=== PATIENT | female | born 1995 | race Two or more races ===

== ENCOUNTER 2024-06-09 10:08 | Emergency (ER) | payer MEDICAID, OTHER ==
[~2024-06-09] VITALS: Ht 167.6 cm; Wt 120.0 kg
[2024-06-09 11:03] LABS: Urine Bacteria FEW /hpf (None Seen); Urine Blood Negative /uL (Negative); Urine Clarity Turbid (Clear); Urine Color Yellow (Yellow); Urine Protein, UAD TRACE (Negative); Urine Specific Gravity 1.027 (1.001-1.035); Urine Squamous Epithelial Cell MOD /hpf (<5); Urine Urobilinogen Normal (Negative); Urine WBC 5 /HPF (0-5); Urine pH 7.5 (5.0-9.0)
[2024-06-09] MEDS: SODIUM CHLORIDE 0.9% 1,000 ML IV ONE (11:04)
--- NOTE | 2024-06-09 11:18 | ED.PDOC ---
GI ASSESSMENT HPI Comments 28 year old female presents to the ED with chief complaint of N/V. Patient reports that she has been experiencing multiple episodes of nausea and vomiting with associated weakness since yesterday. Patient relays that she is diabetic and takes insulin daily. Patient denies any diarrhea, abdominal pain, fever, chills, dizziness, headache, or dysuria. 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 Family History Family History: Reviewed,noncontributory to illness Social History Smoker: Non-Smoker Alcohol: Denies ETOH Use Drugs: Denies Drug Use Lives In: Home Constitutional: reports: weakness; denies: chills, diaphoresis, fatigue, fever, malaise, sweats, others EENTM: denies: blurred vision, double vision, ear bleeding, ear discharge, ear drainage, ear pain, ear ringing, eye pain, eye redness, hearing loss, mouth pain, mouth swelling, nasal discharge, nose bleeding, nose congestion, nose pain, photophobia, tearing, throat pain, throat swelling, voice changes, others Respiratory: denies: cough, hemoptysis, orthopnea, SOB at rest, shortness of breath, SOB with excertion, stridor, wheezing, others Cardiovascular: denies: chest pain, dizzy spells, diaphoresis, Dyspnea on exertion, edema, irregular heart beat, left arm pain, lightheadedness, palpitations, PND, syncope, others Gastrointestinal: reports: nausea, vomiting; denies: abdomen distended, abdominal pain, blood streaked bowels, constipated, diarrhea, dysphagia, difficulty swallowing, hematemesis, melena, poor appetite, poor fluid intake, rectal bleeding, rectal pain, others Genitourinary: denies: abnormal vagina bleeding, burning, dyspareunia, dysuria, flank pain, frequency, hematuria, incontinence, pain, , vagina discharge, urgency, others Neurological: denies: dizziness, fainting, headache, left sided numbness, left sided weakness, numbness, paresthesia, pre-existing deficit, right sided numbness, right sided weakness, seizure, speech problems, tingling, tremors, weakness, others Musculoskeletal: denies: back pain, gout, joint pain, joint swelling, muscle pain, muscle stiffness, neck pain, others Integumetry: denies: bruises, change in color, change in hair/nails, dryness, laceration, lesions, lumps, rash, wounds, others Allergic/Immunocompromised: denies: Difficulty Healing, Frequent Infections, Hives, Itching, others Hematologic/Lymphatic: denies: anemia, blood clots, easy bleeding, easy bruising, swollen glands, others Endocrine: denies: excessive hunger, excessive sweating, excessive thirst, excessive urination, flushing, intolerance to cold, intolerance to heat, unexplained weight gain, unexplained weight loss, others Psychiatric: denies: anxiety, bipolar disorder, depression, hopeless, panic disorder, schizophrenia, sleepless, suicidal, others All Other Systems: Reviewed and Negative Physical Exam General Appearance: Moderate Distress, Normal HEENT: Normal ENT Inspection, PERRL/EOMI Neck: Full Range of Motion, Non-Tender, Normal, Normal Inspection Respiratory: Chest Non-Tender, Lungs Clear, No Accessory Muscle Use, No Respiratory Distress, Normal Breath Sounds Cardiovascular: No Edema, No JVD, No Murmur, No Gallop, Normal Peripheral Pulses, Tachycardia Breast Exam: Deferred Gastrointestinal: No Organomegaly, Non Tender, No Pulsatile Mass, Normal Bowel Sounds, Soft Genitalia: Deferred Pelvic: Deferred Rectal: Deferred Extremities: No calf tenderness, Normal capillary refill, Normal inspection, Normal range of motion, Non-tender, No pedal edema Musculoskeletal : Apperance: Normal Neurologic: Alert, associate editor II-XII nml as Tested, No Motor Deficits, Normal Affect, Normal Mood, No Sensory Deficits Cerebellar Function: Normal Reflexes: Normal Skin: Dry, Normal Color, Warm Peripheral Pulses: 3+ Radial (R), 3+ Radial (L) Lymphatic: No Adenopathy Was a procedure done? Was a procedure done?: No GI differential Dx Differential Diagnosis: Constipation, Diverticular disease, Esophagitis, Gastritis/PUD, Gastroenteritis X-Ray, Labs, Meds, VS Vital Signs Date Time Temp Pulse Resp B/P (MAP) Pulse Ox O2 Delivery O2 Flow Rate FiO2 06/09/24 11:15 Room Air* 0 21 06/09/24 11:06 102 20 97 Room Air 06/09/24 11:06 97.8 102 20 132/83 (99) 97 97.8 06/09/24 10:26 28 99 Room Air* 0 21 06/09/24 10:21 97.9 102 28 152/82 (105) 99 Lab Test 06/09/24 11:03 06/09/24 10:16 06/09/24 10:14 Range/Units White Blood Count 8.8 4.4-10.8 10^3/uL Red Blood Count 5.35 H 4.0-5.20 10^6/uL Hemoglobin 15.6 12.2-16.2 g/dL Hematocrit 45.9 36.0-46.0 % Mean Corpuscular Volume 85.9 80.0-100.0 fL Mean Corpuscular Hemoglobin 29.2 28.0-32.0 pg Mean Corpuscular Hemoglobin Concent 34.0 32.0-36.0 g/dL Red Cell Distribution Width 12.1 11.8-14.3 % Platelet Count 241 140-450 10^3/uL Mean Platelet Volume 10.7 6.9-10.8 fL Neutrophils (%) (Auto) 83.7 H 37.0-80.0 % Lymphocytes (%) (Auto) 12.4 10.0-50.0 % Monocytes (%) (Auto) 3.1 0.0-12.0 % Eosinophils (%) (Auto) 0.1 0.0-7.0 % Basophils (%) (Auto) 0.7 0.0-2.0 % Neutrophils # (Auto) 7.3 1.6-8.6 10 ^3/uL Lymphocytes # (Auto) 1.1 0.4-5.4 10 ^3/uL Monocytes # (Auto) 0.3 0-1.3 10 ^3/uL Eosinophils # (Auto) 0 0-0.8 10 ^3/uL Basophils # (Auto) 0.1 0-0.2 10 ^3/uL Nucleated Red Blood Cells 0.1 % Sodium Level Pending Potassium Level Pending Chloride Level Pending Carbon Dioxide Level Pending Anion Gap Pending Blood Urea Nitrogen Pending Creatinine Pending Glomerular Filtration Rate Calc Pending BUN/Creatinine Ratio Pending Serum Glucose Pending Calcium Level Pending Beta-Hydroxybutyric Acid Pending Urine Color Yellow Yellow Urine Clarity Turbid H Clear Urine pH 7.5 5.0-9.0 Urine Specific [place] 1.027 1.001-1.035 Urine Protein Trace H Negative Urine Ketones 2+ H Negative Urine Blood Negative Negative /uL Urine Nitrite Negative Negative Urine Bilirubin Negative Negative Urine Urobilinogen Normal Negative mg/dL Urine Leukocyte Esterase Negative Negative /uL Urine RBC 2 0 - 4 /hpf Urine Microscopic WBC 5 0-5 /HPF Urine Squamous Epithelial Cells Mod <5 /hpf Urine Bacteria Few H None Seen /hpf Urine Glucose 4+ H Normal mg/dL Urine Test Negative Negative POC Glucose 290 H 70-106 mg/dl Current Medications Medications (Trade) Dose Ordered Sig/Sena Route Start Time Stop Time Status Last Admin Sodium Chloride 1,000 ml @ 1,000 mls/hr Q1H ONCE IV 06/09/24 11:00 06/09/24 11:59 06/09/24 11:04 Ondansetron HCl (Zofran) 4 mg ONCE ONCE IV 06/09/24 11:15 06/09/24 11:16 DC 06/09/24 11:20 Patient alert. Very anxious. Blood sugar elevated. Establish intravenous access. Was given fluids. She has been having nausea vomiting. Was given Zofran. WBC within normal limits. Possible DKA. Reviewed her previous visit. Explained to the patient. Continue cardiac monitoring. Time of 1ST Reevaluation: 12:16 Reevaluation 1ST: Unchanged Patient Education/Counseling: Diagnosis, Treatment Family Education/Counseling: No Family Present Departure 1 Departure Time of Disposition: 11:31 Impression: Primary Impression: Uncontrolled diabetes mellitus Qualified Codes: E13.65 - Other specified diabetes mellitus with hyperglycemia Disposition: ADMITTED INPATIENT Admit to: Med Surg Condition: Guarded Critical Care Note Critical Care Time?: No Stability Stability form required: No Heart Score Heart Score: Heart Score Response (Comments) Value History N/A 0 EKG N/A 0 Age N/A 0 Risk Factors N/A 0 Troponin N/A 0 Total 0 I personally scribed for JOE CRAWLEY MD ([email or web address]) on 06/09/24 at 11:18. Electronically submitted by Ankit Martinez ([email or web address]). JOE CRAWLEY MD Jun 09, 2024 11:18
[2024-06-09] MEDS: ONDANSETRON HCL 4 MG/2 ML VIAL IV ONE ×2 (11:20→13:26)
[2024-06-09 11:26] LABS: Basophils # (auto) 0.1 10 ^3/uL (0-0.2); Basophils % (auto) 0.7 % (0.0-2.0); Eosinophils # (auto) 0 10 ^3/uL (0-0.8); Eosinophils % (auto) 0.1 % (0.0-7.0); Hematocrit 45.9 % (36.0-46.0); Hemoglobin 15.6 g/dL (12.2-16.2); Lymphocytes # (auto) 1.1 10 ^3/uL (0.4-5.4); Lymphocytes % (auto) 12.4 % (10.0-50.0); Mean Corpuscular Hemoglobin 29.2 pg (28.0-32.0); Mean Corpuscular Volume 85.9 fL (80.0-100.0); Monocytes # (auto) 0.3 10 ^3/uL (0-1.3); Monocytes % (auto) 3.1 % (0.0-12.0); Neutrophils # (auto) 7.3 10 ^3/uL (1.6-8.6); Neutrophils % (auto) 83.7 % (37.0-80.0); Nucleated Red Blood Cells % 0.1 %; Platelet Count (auto) 241 10^3/uL (140-450); Red Blood Cells 5.35 10^6/uL (4.0-5.20); Red Cell Distribution Width 12.1 % (11.8-14.3); White Blood Cell 8.8 10^3/uL (4.4-10.8)
[2024-06-09 11:35] LABS: Chloride 104 mmol/L (98-107); Potassium 3.9 mmol/L (3.5-5.1); Sodium 140 mmol/L (136-145)
[2024-06-09 11:36] LABS: Anion Gap 11 (5-15); Carbon Dioxide 25 mmol/L (20-31)
[2024-06-09 11:37] LABS: Calcium 10.1 mg/dL (8.7-10.4)
[2024-06-09] MEDS: InsuLIN REG 1unit/0.01ml Soln (100units/ml) IV ONE (11:40)
[2024-06-09 11:42] LABS: BUN/Creatinine Ratio 11.1 (10.0-20.0); Blood Urea Nitrogen 11 mg/dL (9-23)
[2024-06-09 11:43] LABS: Glucose 319 mg/dL (74-106)
[2024-06-09 12:54] VITALS: TEMP 98.2; O2SAT 98
[2024-06-09] MEDS: MORPHINE SULFATE INJ 2 MG/ml SYRG IV ONE (13:25)
[2024-06-09 13:55] VITALS: BP 138/70; PULSE 75; RESP 15
[2024-06-10] MEDS ORDERED: METF-370 PO (08:54)
[2024-06-10] MEDS ORDERED: SEMA2INJ3 SC (08:55)
[2024-06-10] MEDS ORDERED: LISI10TA34 PO (08:57)
== END 2024-06-09 19:59 | disposition left against medical advice (07) ==
LOC: ER 10:08
DX: E11.9 Type 2 diabetes mellitus without complications (principal)
CPT/HCPCS: 36415; 80048; 81001; 81025; 82010; 82962; 85025; 96361; 96374; 96375; 96376; 99285; J1815; J2270; J2405; J7030

== ENCOUNTER 2024-06-09 21:56 | Inpatient (IN) | payer MEDICAID ==
[~2024-06-09] VITALS: Ht 162.6 cm; Wt 121.4 kg
[2024-06-09 23:16] LABS: Base Excess 1.8 mmol/L (-2.0-3.0)
--- NOTE | 2024-06-09 23:28 | DVH ---
CT SCAN ABDOMEN AND PELVIS WITHOUT CONTRAST CLINICAL HISTORY: abdominal pain TECHNIQUE: Helical axial images are obtained from the lung bases through the pelvis without oral cont rast. No intravenous contrast was administered. Coronal and sagittal reformatted images were generate d from thin section reconstructions. One or more of the following radiation dose reduction techniques were used for this examination: automated exposure control, adjustment of the mA and/or kV according to patient size, use of iterative reconstruction technique. COMPARISON: None FINDINGS: LOWER THORAX: Imaged lung bases are grossly clear. ABDOMEN AND PELVIS: Evaluation of visceral and vascular structures is limited due to lack of contrast administration. As visualized, the liver demonstrates decreased parenchymal attenuation. This is most commonly seen w ith fatty infiltration. The spleen, pancreas and adrenals appear grossly unremarkable. No sizable, ra diopaque cholelithiasis or biliary ductal dilatation appreciated. No hydroureteronephrosis or sizable, obstructing urinary tract calculi identified. No evidence of abdominal aortic aneurysm. Fluid content noted within the stomach. No evidence of bowel obstruction. Normal caliber appendix. No free intraperitoneal air or fluid identified. No sizable bladder calculus. No destructive osseous lesions identified. Degenerative changes at L5-S1. IMPRESSION: Decreased hepatic parenchymal attenuation which is most commonly secondary to fatty infiltration. Oth er diffusely infiltrative processes not excluded. Please correlate clinically. Otherwise no bowel obstruction, free intraperitoneal air / fluid or sizable inflammatory collections identified on this noncontrast examination.
[2024-06-09 23:30] VITALS: PULSE 90; RESP 20; O2SAT 98
[2024-06-09] MEDS: SODIUM CHLORIDE 0.9% 1,000 ML IV ONE (23:35)
[2024-06-09] MEDS: ONDANSETRON HCL 4 MG/2 ML VIAL IV ONE ×2 (23:35)
[2024-06-09] MEDS: SODIUM CHLORIDE 0.9% 1,000 ML IVB ONE (23:36)
[2024-06-09 23:44] LABS: Basophils # (auto) 0.1 10 ^3/uL (0-0.2); Basophils % (auto) 0.8 % (0.0-2.0); Eosinophils # (auto) 0 10 ^3/uL (0-0.8); Eosinophils % (auto) 0.2 % (0.0-7.0); Hematocrit 45.4 % (36.0-46.0); Hemoglobin 15.1 g/dL (12.2-16.2); Lymphocytes # (auto) 2.6 10 ^3/uL (0.4-5.4); Lymphocytes % (auto) 22.8 % (10.0-50.0); Mean Corpuscular Hgb Conc. 33.3 g/dL (32.0-36.0); Mean Corpuscular Volume 86.9 fL (80.0-100.0); Monocytes # (auto) 0.8 10 ^3/uL (0-1.3); Monocytes % (auto) 6.9 % (0.0-12.0); Neutrophils # (auto) 7.8 10 ^3/uL (1.6-8.6); Neutrophils % (auto) 69.3 % (37.0-80.0); Platelet Count (auto) 237 10^3/uL (140-450); Red Blood Cells 5.22 10^6/uL (4.0-5.20); Red Cell Distribution Width 12.1 % (11.8-14.3); White Blood Cell 11.2 10^3/uL (4.4-10.8)
[2024-06-10 00:09] LABS: Albumin 4.8 g/dL (3.2-4.8); Alkaline Phosphatase 92 U/L (46-116); Anion Gap 11 (5-15); Aspartate Aminotransferase 32 U/L (13-40); BUN/Creatinine Ratio 12.2 (10.0-20.0); Blood Urea Nitrogen 11 mg/dL (9-23); Calcium 10.1 mg/dL (8.7-10.4); Carbon Dioxide 25 mmol/L (20-31); Chloride 106 mmol/L (98-107); Lipase 34 U/L (12-53); Sodium 142 mmol/L (136-145); Total Protein 7.8 g/dL (5.7-8.2)
[2024-06-10 00:13] LABS: Alanine Aminotransferase 58 U/L (7-40); Glucose 228 mg/dL (74-106); Potassium 3.5 mmol/L (3.5-5.1)
--- NOTE | 2024-06-10 00:54 | ED.PDOC ---
History of Present Illness HPI Comments 28 y/o F, with a Hx of DM and morbid obesity, presents with c/o non-radiating, diffused abdominal pain, nausea, vomiting, diarrhea, and generalized bodyaches for 1x day, today. Patient was noted to have been found with a blood glucose of >300 upon arrival to ED triage. She endorses no recent sick contact, travel, spoiled food intake, or other relevant or pertinent information. Patient denies having any hematemesis, hematochezia, urinary symptoms, fever, chills, or other associated symptoms or modifiers at this time. 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 Family History Family History: Reviewed,noncontributory to illness Social History Smoker: Non-Smoker Alcohol: Denies ETOH Use Drugs: Denies Drug Use Lives In: Home Gastrointestinal: reports: abdominal pain, diarrhea, nausea, vomiting Musculoskeletal: reports: others (generalized bodyaches) All Other Systems: Reviewed and Negative (negative unless otherwise stateda above or in HPI) Physical Exam General Appearance: No Apparent Distress, Obese HEENT: Normal ENT Inspection, Pharynx Normal, TMs Normal, Other (fruity breathe, dry mucus membranes, otherwise normal ENT exam ) Neck: Full Range of Motion, Non-Tender, Normal, Normal Inspection Respiratory: Chest Non-Tender, Lungs Clear, No Accessory Muscle Use, No Respiratory Distress, Normal Breath Sounds Cardiovascular: No Edema, No JVD, No Murmur, No Gallop, Normal Peripheral Pulses, Tachycardia Breast Exam: Deferred Gastrointestinal: Diffuse (tenderness), No Organomegaly, No Pulsatile Mass, Normal Bowel Sounds, Soft, Tenderness (diffused ) Genitalia: Deferred Pelvic: Deferred Rectal: Deferred Extremities: No calf tenderness, Normal capillary refill, Normal inspection, Normal range of motion, Non-tender, No pedal edema Musculoskeletal : Apperance: Normal Neurologic: Alert, toe laster II-XII nml as Tested, No Motor Deficits, Normal Affect, Normal Mood, No Sensory Deficits Cerebellar Function: Normal Reflexes: Normal Skin: Dry, Normal Color, Warm Lymphatic: No Adenopathy Was a procedure done? Was a procedure done?: No Differential Dx Considerations may include: gastritis, gastroenteritis, viral syndrome, , spoiled food, DKA X-Ray, Labs, Meds, VS Vital Signs Date Time Temp Pulse Resp B/P (MAP) Pulse Ox O2 Delivery O2 Flow Rate FiO2 06/09/24 23:47 98.5 90 20 131/73 (92) 98 98.5 06/09/24 23:30 90 20 98 Room Air* 0 21 06/09/24 22:09 97.5 88 17 144/105 (118) 95 Lab Test 06/09/24 23:30 06/09/24 23:11 Range/Units White Blood Count 11.2 #H 4.4-10.8 10^3/uL Red Blood Count 5.22 H 4.0-5.20 10^6/uL Hemoglobin 15.1 12.2-16.2 g/dL Hematocrit 45.4 36.0-46.0 % Mean Corpuscular Volume 86.9 80.0-100.0 fL Mean Corpuscular Hemoglobin 29.0 28.0-32.0 pg Mean Corpuscular Hemoglobin Concent 33.3 32.0-36.0 g/dL Red Cell Distribution Width 12.1 11.8-14.3 % Platelet Count 237 140-450 10^3/uL Mean Platelet Volume 10.2 6.9-10.8 fL Neutrophils (%) (Auto) 69.3 37.0-80.0 % Lymphocytes (%) (Auto) 22.8 10.0-50.0 % Monocytes (%) (Auto) 6.9 0.0-12.0 % Eosinophils (%) (Auto) 0.2 0.0-7.0 % Basophils (%) (Auto) 0.8 0.0-2.0 % Neutrophils # (Auto) 7.8 1.6-8.6 10 ^3/uL Lymphocytes # (Auto) 2.6 0.4-5.4 10 ^3/uL Monocytes # (Auto) 0.8 0-1.3 10 ^3/uL Eosinophils # (Auto) 0 0-0.8 10 ^3/uL Basophils # (Auto) 0.1 0-0.2 10 ^3/uL Nucleated Red Blood Cells 0.0 % Sodium Level 142 136-145 mmol/L Potassium Level 3.5 3.5-5.1 mmol/L Chloride Level 106 98-107 mmol/L Carbon Dioxide Level 25 20-31 mmol/L Anion Gap 11 5-15 Blood Urea Nitrogen 11 9-23 mg/dL Creatinine 0.90 0.550-1.02 mg/dL Glomerular Filtration Rate Calc 89 >90 mL/min BUN/Creatinine Ratio 12.2 10.0-20.0 Serum Glucose 228 H 74-106 mg/dL Lactic Acid Level 1.4 0.4-2.0 mmol/L Calcium Level 10.1 8.7-10.4 mg/dL Total Bilirubin 1.0 0.2-1.0 mg/dL Aspartate Amino Transferase (AST) 32 13-40 U/L Alanine Aminotransferase (ALT) 58 H 7-40 U/L Alkaline Phosphatase 92 46-116 U/L Total Protein 7.8 5.7-8.2 g/dL Albumin 4.8 3.2-4.8 g/dL Lipase 34 12-53 U/L Blood Gas Specimen Type Arterial Blood Gas Sample Site Right radial Blood Gas Patient Temperature 37.0 Arterial Blood Date Drawn [id number] Arterial Blood pH 7.484 H 7.350-7.450 Arterial Blood Partial Pressure CO2 33.5 32.0-45.0 mmHg Arterial Blood Partial Pressure O2 87.1 83.0-108.0 mmHg Arterial Blood HCO3 24.6 21.0-28.0 mmol/L Arterial Blood Oxygen Saturation 96.7 94.0-98.0 % Arterial Blood Base Excess 1.8 -2.0-3.0 mmol/L Arterial Blood Oxyhemoglobin 95.0 94.0-98.0 % Arterial Blood Carboxyhemoglobin 1.3 0.5-1.5 % Arterial Blood Methemoglobin 0.5 0.0-1.5 % Bartolome Test Yes Blood Gas Total Hemoglobin 15.70 12.0-16.0 g/dL Blood Gas Liter Flow 0.00 Blood Gas Modality Room air Blood Gas Spontaneous Rate 20 FiO2 % 21.0 Specimen Drawn By Marcelle almonte rt Current Medications Medications (Trade) Dose Ordered Sig/Sena Route Start Time Stop Time Status Last Admin Sodium Chloride 1,000 ml @ 1,000 mls/hr Q1H ONCE IVB 06/09/24 23:00 06/09/24 23:59 DC 06/09/24 23:36 Ondansetron HCl (Zofran) 4 mg ONCE ONCE IV 06/09/24 23:00 06/09/24 23:01 DC 06/09/24 23:35 Sodium Chloride 1,000 ml @ 1,000 mls/hr Q1H ONCE IV 06/09/24 23:00 06/09/24 23:59 DC 06/09/24 23:35 Ondansetron HCl (Zofran) 4 mg ONCE ONCE IV 06/09/24 23:00 06/09/24 23:01 DC 06/09/24 23:35 Time of 1ST Reevaluation: 23:20 Reevaluation 1ST: Unchanged Time of 2ND Reevaluation: 01:16 Reevaluation 2ND: Improved Patient Education/Counseling: Diagnosis, Treatment, Prognosis, Need For Follow Up Family Education/Counseling: No Family Present Additional Information I reviewed the following notes from patient's past medical encounters: 06/09/24 ED physician note The following tests were ordered, and results were reviewed by me: CT abdomen and pelvis w/o contrast, lactic acid, UA, lipase, CMP, CBC I reviewed and agreed with the following test results read by other providers: CT abdomen and pelvis w/o contrast I discussed treatment and results with medical personnel. although pt is feeling improved, she still feels uncomfortable to tolerate anything by mouth. pt likely has diabetic gastroparesis. although she is not in DKA, she may worsen, if the gastroparesis is not resolved. pt will be admitted for supportive treatments until she is able tolerate oral intake Departure 1 Departure Time of Disposition: 01:17 Impression: Primary Impression: Uncontrolled diabetes mellitus Qualified Codes: E10.65 - Type 1 diabetes mellitus with hyperglycemia Additional Impression: Diabetic gastroparesis Disposition: 09 ADMITTED INPATIENT Admit to: Med Surg Condition: Fair Discharged With: Self Critical Care Note Critical Care Time?: Yes (55 min-critical care time only) Critical care comment: due to concerns for patient's condition deteriorating, the care required my highest level of attention and readiness. i reviewed all relevant data, records, assessed the patient, ordered the proper tests, treatments, communicated with medical personnel, reassess the response and results. i also formulated a plan of care. total critical care time does not include any procedures Stability Stability form required: No I personally scribed for MALACHI COLLADO MD ([email or web address]) on 06/10/24 at 00:54. Electronically submitted by Amado Brink ([email or web address]). I personally scribed for MALACHI COLLADO MD ([email or web address]) on 06/10/24 at 02:03. Electronically submitted by Amado Brink ([email or web address]). MALACHI COLLADO MD Jun 10, 2024 00:54 DOROTA WOLF MD Jun 10, 2024 01:24
--- NOTE | 2024-06-10 02:03 | ED.PDOC ---
History of Present Illness HPI Comments 28 y/o F, with a Hx of DM and morbid obesity, presents with c/o non-radiating, diffused abdominal pain, nausea, vomiting, diarrhea, and generalized bodyaches for 1x day, today. Patient was noted to have been found with a blood glucose of >300 upon arrival to ED triage. She endorses no recent sick contact, travel, spoiled food intake, or other relevant or pertinent information. Patient denies having any hematemesis, hematochezia, urinary symptoms, fever, chills, or other associated symptoms or modifiers at this time. Chief Complaint: Abdominal Pain Time Seen by MD: 22:50 Primary Care Provider: none Reviewed Notes: Nurses Notes, Medications, Allergies Allergies: Coded Allergies: NO KNOWN ALLERGIES (Unverified , 06/09/24) Information Source: Patient Mode of Arrival: Ambulatory Severity: Moderate Timing: Days Duration: Since onset Prehospital treatment: None Past Medical History PAST MEDICAL HISTORY: DM Past Medical History (Other): morbid obesity Surgical History: Denies all surgeries CREDIT PROFESSIONAL History: Denies all CREDIT PROFESSIONAL Hx Family History Family History: Reviewed,noncontributory to illness Social History Smoker: Non-Smoker Alcohol: Denies ETOH Use Drugs: Denies Drug Use Lives In: Home Gastrointestinal: reports: abdominal pain, diarrhea, nausea, vomiting Musculoskeletal: reports: others (generalized bodyaches ) All Other Systems: Reviewed and Negative (negative unless otherwise stated above or in HPI) Physical Exam General Appearance: No Apparent Distress, Obese HEENT: Normal ENT Inspection, Pharynx Normal, TMs Normal, Other (fruity breathe, dry mucus membranes, otherwise normal ENT exam ) Neck: Full Range of Motion, Non-Tender, Normal, Normal Inspection Respiratory: Chest Non-Tender, Lungs Clear, No Accessory Muscle Use, No Respiratory Distress, Normal Breath Sounds Cardiovascular: No Edema, No JVD, No Murmur, No Gallop, Normal Peripheral Pulses, Tachycardia Breast Exam: Deferred Gastrointestinal: Diffuse (tenderness), No Organomegaly, No Pulsatile Mass, Normal Bowel Sounds, Soft, Tenderness (diffused ) Genitalia: Deferred Pelvic: Deferred Rectal: Deferred Extremities: No calf tenderness, Normal capillary refill, Normal inspection, Normal range of motion, Non-tender, No pedal edema Musculoskeletal : Apperance: Normal Neurologic: Alert, supervisor rubber covering II-XII nml as Tested, No Motor Deficits, Normal Affect, Normal Mood, No Sensory Deficits Cerebellar Function: Normal Reflexes: Normal Skin: Dry, Normal Color, Warm Lymphatic: No Adenopathy Was a procedure done? Was a procedure done?: No Differential Dx Considerations may include: gastritis, gastroenteritis, viral syndrome, , spoiled food, DKA X-Ray, Labs, Meds, VS Vital Signs Date Time Temp Pulse Resp B/P (MAP) Pulse Ox O2 Delivery O2 Flow Rate FiO2 06/09/24 23:47 98.5 90 20 131/73 (92) 98 98.5 06/09/24 23:30 90 20 98 Room Air* 0 21 06/09/24 22:09 97.5 88 17 144/105 (118) 95 Lab Test 06/09/24 23:30 06/09/24 23:11 Range/Units White Blood Count 11.2 #H 4.4-10.8 10^3/uL Red Blood Count 5.22 H 4.0-5.20 10^6/uL Hemoglobin 15.1 12.2-16.2 g/dL Hematocrit 45.4 36.0-46.0 % Mean Corpuscular Volume 86.9 80.0-100.0 fL Mean Corpuscular Hemoglobin 29.0 28.0-32.0 pg Mean Corpuscular Hemoglobin Concent 33.3 32.0-36.0 g/dL Red Cell Distribution Width 12.1 11.8-14.3 % Platelet Count 237 140-450 10^3/uL Mean Platelet Volume 10.2 6.9-10.8 fL Neutrophils (%) (Auto) 69.3 37.0-80.0 % Lymphocytes (%) (Auto) 22.8 10.0-50.0 % Monocytes (%) (Auto) 6.9 0.0-12.0 % Eosinophils (%) (Auto) 0.2 0.0-7.0 % Basophils (%) (Auto) 0.8 0.0-2.0 % Neutrophils # (Auto) 7.8 1.6-8.6 10 ^3/uL Lymphocytes # (Auto) 2.6 0.4-5.4 10 ^3/uL Monocytes # (Auto) 0.8 0-1.3 10 ^3/uL Eosinophils # (Auto) 0 0-0.8 10 ^3/uL Basophils # (Auto) 0.1 0-0.2 10 ^3/uL Nucleated Red Blood Cells 0.0 % Sodium Level 142 136-145 mmol/L Potassium Level 3.5 3.5-5.1 mmol/L Chloride Level 106 98-107 mmol/L Carbon Dioxide Level 25 20-31 mmol/L Anion Gap 11 5-15 Blood Urea Nitrogen 11 9-23 mg/dL Creatinine 0.90 0.550-1.02 mg/dL Glomerular Filtration Rate Calc 89 >90 mL/min BUN/Creatinine Ratio 12.2 10.0-20.0 Serum Glucose 228 H 74-106 mg/dL Lactic Acid Level 1.4 0.4-2.0 mmol/L Calcium Level 10.1 8.7-10.4 mg/dL Total Bilirubin 1.0 0.2-1.0 mg/dL Aspartate Amino Transferase (AST) 32 13-40 U/L Alanine Aminotransferase (ALT) 58 H 7-40 U/L Alkaline Phosphatase 92 46-116 U/L Total Protein 7.8 5.7-8.2 g/dL Albumin 4.8 3.2-4.8 g/dL Lipase 34 12-53 U/L Blood Gas Specimen Type Arterial Blood Gas Sample Site Right radial Blood Gas Patient Temperature 37.0 Arterial Blood Date Drawn [id number] Arterial Blood pH 7.484 H 7.350-7.450 Arterial Blood Partial Pressure CO2 33.5 32.0-45.0 mmHg Arterial Blood Partial Pressure O2 87.1 83.0-108.0 mmHg Arterial Blood HCO3 24.6 21.0-28.0 mmol/L Arterial Blood Oxygen Saturation 96.7 94.0-98.0 % Arterial Blood Base Excess 1.8 -2.0-3.0 mmol/L Arterial Blood Oxyhemoglobin 95.0 94.0-98.0 % Arterial Blood Carboxyhemoglobin 1.3 0.5-1.5 % Arterial Blood Methemoglobin 0.5 0.0-1.5 % Bartolome Test Yes Blood Gas Total Hemoglobin 15.70 12.0-16.0 g/dL Blood Gas Liter Flow 0.00 Blood Gas Modality Room air Blood Gas Spontaneous Rate 20 FiO2 % 21.0 Specimen Drawn By Marcelle almonte rt Current Medications Medications (Trade) Dose Ordered Sig/Sena Route Start Time Stop Time Status Last Admin Sodium Chloride 1,000 ml @ 1,000 mls/hr Q1H ONCE IVB 06/09/24 23:00 06/09/24 23:59 DC 06/09/24 23:36 Ondansetron HCl (Zofran) 4 mg ONCE ONCE IV 06/09/24 23:00 06/09/24 23:01 DC 06/09/24 23:35 Sodium Chloride 1,000 ml @ 1,000 mls/hr Q1H ONCE IV 06/09/24 23:00 06/09/24 23:59 DC 06/09/24 23:35 Ondansetron HCl (Zofran) 4 mg ONCE ONCE IV 06/09/24 23:00 06/09/24 23:01 DC 06/09/24 23:35 [place] [id number] Ph: [phone] DIAGNOSTIC IMAGING Diagnostic Imaging Report : [id number] Signed PATIENT: CHALO MONROY ACCT: [id number] UNIT: [id number] : 1995 LOC: ER ROOM / BED: / AGE / SEX: 28 / F ADM STATUS: REG ER SERVICE [id number] ORDERING PHYSICIAN: DOROTA WOLF MD PROCEDURE(s): ABPL - CT AB PEL WO CON-NO ORAL OR IV REASON: abdominal pain ORDER NUMBER(s): [id number], ACCESSION NUMBER(s): [id number] CT SCAN ABDOMEN AND PELVIS WITHOUT CONTRAST CLINICAL HISTORY: abdominal pain TECHNIQUE: Helical axial images are obtained from the lung bases through the pelvis without oral contrast. No intravenous contrast was administered. Coronal and sagittal reformatted images were generated from thin section reconstructions. One or more of the following radiation dose reduction techniques were used for this examination: automated exposure control, adjustment of the mA and/or kV according to patient size, use of iterative reconstruction technique. COMPARISON: None FINDINGS: LOWER THORAX: Imaged lung bases are grossly clear. ABDOMEN AND PELVIS: Evaluation of visceral and vascular structures is limited due to lack of contrast administration. As visualized, the liver demonstrates decreased parenchymal attenuation. This is most commonly seen with fatty infiltration. The spleen, pancreas and adrenals appear grossly unremarkable. No sizable, radiopaque cholelithiasis or biliary ductal dilatation appreciated. No hydroureteronephrosis or sizable, obstructing urinary tract calculi identified. No evidence of abdominal aortic aneurysm. Fluid content noted within the stomach. No evidence of bowel obstruction. Normal caliber appendix. No free intraperitoneal air or fluid identified. No sizable bladder calculus. No destructive osseous lesions identified. Degenerative changes at L5-S1. IMPRESSION: Decreased hepatic parenchymal attenuation which is most commonly secondary to fatty infiltration. Other diffusely infiltrative processes not excluded. Please correlate clinically. Otherwise no bowel obstruction, free intraperitoneal air / fluid or sizable inflammatory collections identified on this noncontrast examination. ATED BY: HOLLIS LEON MD DICTATED DATE/TIME: 06/09/242325 SIGNED BY: HOLLIS LEON MD SIGNED DATE/TIME: 06/09/242325 CC: Time of 1ST Reevaluation: 23:20 Reevaluation 1ST: Unchanged Time of 2ND Reevaluation: 01:16 Reevaluation 2ND: Improved Patient Education/Counseling: Diagnosis, Treatment, Prognosis, Need For Follow Up Family Education/Counseling: No Family Present Additional Information I reviewed the following notes from patient's past medical encounters: 06/09/24 ED physician note The following tests were ordered, and results were reviewed by me: CT abdomen and pelvis w/o contrast, lactic acid, UA, lipase, CMP, CBC I reviewed and agreed with the following test results read by other providers: CT abdomen and pelvis w/o contrast I discussed treatment and results with medical personnel. although pt is feeling improved, she still feels uncomfortable to tolerate anything by mouth. pt likely has diabetic gastroparesis. although she is not in DKA, she may worsen, if the gastroparesis is not resolved. pt will be admitted for supportive treatments until she is able tolerate oral intake Departure 1 Departure Time of Disposition: 01:17 Impression: Primary Impression: Uncontrolled diabetes mellitus Qualified Codes: E10.65 - Type 1 diabetes mellitus with hyperglycemia Additional Impression: Diabetic gastroparesis Disposition: ADMITTED INPATIENT Admit to: Med Surg Condition: Fair Discharged With: Self Critical Care Note Critical Care Time?: Yes (55 min-critical care time only) Critical care comment: due to concerns for patient's condition deteriorating, the care required my highest level of attention and readiness. i reviewed all relevant data, records, assessed the patient, ordered the proper tests, treatments, communicated with medical personnel, reassess the response and results. i also formulated a plan of care. total critical care time does not include any procedures Stability Stability form required: No Heart Score Heart Score: Heart Score Response (Comments) Value History N/A 0 EKG N/A 0 Age N/A 0 Risk Factors N/A 0 Troponin N/A 0 Total 0 I personally scribed for DOROTA WOLF MD ([email or web address]) on 06/10/24 at 02:03. Electronically submitted by Amado Brink ([email or web address]). DOROTA WOLF MD Jun 10, 2024 02:03
[2024-06-10] MEDS ORDERED: HYDROcodone-ACET 5/325MG TAB PO PRN (04:15)
[2024-06-10] MEDS ORDERED: ACETAMINOPHEN 325 MG TAB PO PRN (04:15)
[2024-06-10] MEDS ORDERED: DEXTROSE (50%) 50ML SYRG IV PRN (04:15)
--- NOTE | 2024-06-10 05:35 | DVHHP2 ---
History of Present Illness Reason for Visit: Abdominal pain History of Present Illness 28-year-old female presents for evaluation of abdominal pain. Patient reports a one day history of lower pain with associated nausea and vomiting. Denies fever or chills. No dysuria or hematuria. She also reports her blood sugar being gre ater than 300 throughout the day. Other acute complaints reported. Past Medical History Diabetes mellitus morbid obesity Past Surgical History Denies Family History Noncontributory Smoke: No ALCOHOL: none Drugs: None Lives: with Family Review of Systems Review of Systems Review of systems are currently negative otherwise addressed in HPI. Allergies: Coded Allergies: NO KNOWN ALLERGIES (Unverified , 06/09/24) Medications Current Medications Medications Dose Ordered Sig/Sena Route Start Time Stop Time Status Last Admin Dose Admin Diagnostic Test (Pha) 1 strip Q6HR 06/10/24 06:00 Insulin Human Regular Q6HR SC 06/10/24 06:00 Dextrose 50 ml UD PRN IV 06/10/24 04:15 Acetaminophen/ Hydrocodone Bitart 1 tab Q4HP PRN PO 06/10/24 04:15 Ondansetron HCl 4 mg Q4HP PRN IV 06/10/24 04:15 Acetaminophen 650 mg Q6HP PRN PO 06/10/24 04:15 Exam Vital Signs Vital Signs Date Time Temp Pulse Resp B/P (MAP) Pulse Ox O2 Delivery O2 Flow Rate FiO2 06/09/24 23:47 98.5 90 20 131/73 (92) 98 98.5 06/09/24 23:30 Room Air* 0 21 Exam Gen: 28-year-old female in mild distress, obese Skin: Warm, dry, normal color and texture, no rash. HEENT: Normocephalic atraumatic, mucous membranes moist and pink. Neck: Cervical and supraclavicular nodes normal without enlargement, trachea is midline, thyroid gland is normal without masses. Pulmonary: Clear to auscultation and percussion bilaterally. Cardiac: Regular rate and rhythm. No murmur Abdomen: Soft, nontender, nondistended, bowel sounds present all 4 quadrants, no guarding, no rigidity, no organomegaly. Extremities: No cyanosis, clubbing, no edema Neuro: Cranial nerves II through XII grossly intact, normal affect and speech, no focal motor deficits. Labs/Xrays ORDERING PHYSICIAN: DOROTA WOLF MD PROCEDURE(s): ABPL - CT AB PEL WO CON-NO ORAL OR IV REASON: abdominal pain ORDER NUMBER(s): [id number], ACCESSION NUMBER(s): [id number] CT SCAN ABDOMEN AND PELVIS WITHOUT CONTRAST CLINICAL HISTORY: abdominal pain TECHNIQUE: Helical axial images are obtained from the lung bases through the pelvis without oral contrast. No intravenous contrast was administered. Coronal and sagittal reformatted images were generated from thin section reconstructions. One or more of the following radiation dose reduction techniques were used for this examination: automated exposure control, adjustment of the mA and/or kV according to patient size, use of iterative reconstruction technique. COMPARISON: None FINDINGS: LOWER THORAX: Imaged lung bases are grossly clear. ABDOMEN AND PELVIS: Evaluation of visceral and vascular structures is limited due to lack of contrast administration. As visualized, the liver demonstrates decreased parenchymal attenuation. This is most commonly seen with fatty infiltration. The spleen, pancreas and adrenals appear grossly unremarkable. No sizable, radiopaque cholelithiasis or biliary ductal dilatation appreciated. No hydroureteronephrosis or sizable, obstructing urinary tract calculi identified. No evidence of abdominal aortic aneurysm. Fluid content noted within the stomach. No evidence of bowel obstruction. Normal caliber appendix. No free intraperitoneal air or fluid identified. No sizable bladder calculus. No destructive osseous lesions identified. Degenerative changes at L5-S1. IMPRESSION: Decreased hepatic parenchymal attenuation which is most commonly secondary to fatty infiltration. Other diffusely infiltrative processes not excluded. Please correlate clinically. Otherwise no bowel obstruction, free intraperitoneal air / fluid or sizable inflammatory collections identified on this noncontrast examination. Labs Test 06/09/24 23:30 06/09/24 23:11 Range/Units White Blood Count 11.2 #H 4.4-10.8 10^3/uL Red Blood Count 5.22 H 4.0-5.20 10^6/uL Hemoglobin 15.1 12.2-16.2 g/dL Hematocrit 45.4 36.0-46.0 % Mean Corpuscular Volume 86.9 80.0-100.0 fL Mean Corpuscular Hemoglobin 29.0 28.0-32.0 pg Mean Corpuscular Hemoglobin Concent 33.3 32.0-36.0 g/dL Red Cell Distribution Width 12.1 11.8-14.3 % Platelet Count 237 140-450 10^3/uL Mean Platelet Volume 10.2 6.9-10.8 fL Neutrophils (%) (Auto) 69.3 37.0-80.0 % Lymphocytes (%) (Auto) 22.8 10.0-50.0 % Monocytes (%) (Auto) 6.9 0.0-12.0 % Eosinophils (%) (Auto) 0.2 0.0-7.0 % Basophils (%) (Auto) 0.8 0.0-2.0 % Neutrophils # (Auto) 7.8 1.6-8.6 10 ^3/uL Lymphocytes # (Auto) 2.6 0.4-5.4 10 ^3/uL Monocytes # (Auto) 0.8 0-1.3 10 ^3/uL Eosinophils # (Auto) 0 0-0.8 10 ^3/uL Basophils # (Auto) 0.1 0-0.2 10 ^3/uL Nucleated Red Blood Cells 0.0 % Sodium Level 142 136-145 mmol/L Potassium Level 3.5 3.5-5.1 mmol/L Chloride Level 106 98-107 mmol/L Carbon Dioxide Level 25 20-31 mmol/L Anion Gap 11 5-15 Blood Urea Nitrogen 11 9-23 mg/dL Creatinine 0.90 0.550-1.02 mg/dL Glomerular Filtration Rate Calc 89 >90 mL/min BUN/Creatinine Ratio 12.2 10.0-20.0 Serum Glucose 228 H 74-106 mg/dL Lactic Acid Level 1.4 0.4-2.0 mmol/L Calcium Level 10.1 8.7-10.4 mg/dL Total Bilirubin 1.0 0.2-1.0 mg/dL Aspartate Amino Transferase (AST) 32 13-40 U/L Alanine Aminotransferase (ALT) 58 H 7-40 U/L Alkaline Phosphatase 92 46-116 U/L Total Protein 7.8 5.7-8.2 g/dL Albumin 4.8 3.2-4.8 g/dL Lipase 34 12-53 U/L Blood Gas Specimen Type Arterial Blood Gas Sample Site Right radial Blood Gas Patient Temperature 37.0 Arterial Blood Date Drawn Arterial Blood pH 7.484 H 7.350-7.450 Arterial Blood Partial Pressure CO2 33.5 32.0-45.0 mmHg Arterial Blood Partial Pressure O2 87.1 83.0-108.0 mmHg Arterial Blood HCO3 24.6 21.0-28.0 mmol/L Arterial Blood Oxygen Saturation 96.7 94.0-98.0 % Arterial Blood Base Excess 1.8 -2.0-3.0 mmol/L Arterial Blood Oxyhemoglobin 95.0 94.0-98.0 % Arterial Blood Carboxyhemoglobin 1.3 0.5-1.5 % Arterial Blood Methemoglobin 0.5 0.0-1.5 % Bartolome Test Yes Blood Gas Total Hemoglobin 15.70 12.0-16.0 g/dL Blood Gas Liter Flow 0.00 Blood Gas Modality Room air Blood Gas Spontaneous Rate 20 FiO2 % 21.0 Specimen Drawn By Marcelle almonte rt Assessment/Plan Assessment/Plan Assessment Acute abdominal pain ? Diabetic gastroparesis Uncontrolled diabetes mellitus Morbid obesity Admit the patient to Med surge to the hospitalist GI consultation Clear liquid diet Pain management Continue treatment per orders. Plan discussed with: Patient My Orders Orders - CHUCK QUIROZ Procedure Category Date Status Time * [facility] CONS 06/10/24 Transmitted 04:12 Glucose Blood PHA 06/10/24 In Process (Accu-Chek Comfort 06:00 Insulin R (Human) PHA 06/10/24 In Process (Insulin R) 06:00 Dextrose 50% Syringe PHA 06/10/24 In Process 04:15 Admit ADMIT 06/10/24 Transmitted 04:12 Hydrocodone-Acet PHA 06/10/24 In Process 5/325mg Tab (Bieber 04:15 Ondansetron Hcl PHA 06/10/24 In Process (Zofran) 04:15 Condition: Stable JASMYNE 06/10/24 In Process 04:12 Acetaminophen Tablet PHA 06/10/24 In Process (Tylenol Tablet) 04:15 Clear Liq Diet DIET 06/10/24 Transmitted Breakfast Bedrest With Bathroom JASMYNE 06/10/24 In Process Privileg 04:12 Date of Service: Jun 10, 2024 Billing Provider: CHUCK QUIROZ Common Visit Codes: [id number] INP/OBS CARE (MOD) CHUCK QUIROZ Jun 10, 2024 05:35
[2024-06-10] MEDS: ACCU-CHEK COMFORT CURVE STRIP VI SCH (05:53)
[2024-06-10] MEDS: InsuLIN REG 1unit/0.01ml Soln (100units/ml) SC SCH (05:57)
[2024-06-10] MEDS ORDERED: METF-370 PO (08:54)
[2024-06-10] MEDS ORDERED: SEMA2INJ3 SC (08:55)
[2024-06-10] MEDS ORDERED: LISI10TA34 PO (08:57)
[2024-06-10 08:59] VITALS: O2SAT 98
[2024-06-10 09:25] LABS: Potassium 3.6 mmol/L (3.5-5.1); Sodium 142 mmol/L (136-145)
[2024-06-10 09:26] LABS: Anion Gap 8 (5-15); Basophils # (auto) 0 10 ^3/uL (0-0.2); Basophils % (auto) 0.5 % (0.0-2.0); Calcium 9.3 mg/dL (8.7-10.4); Carbon Dioxide 26 mmol/L (20-31); Eosinophils # (auto) 0 10 ^3/uL (0-0.8); Eosinophils % (auto) 0.4 % (0.0-7.0); Hematocrit 42.7 % (36.0-46.0); Hemoglobin 14.3 g/dL (12.2-16.2); Lymphocytes # (auto) 1.9 10 ^3/uL (0.4-5.4); Lymphocytes % (auto) 20.4 % (10.0-50.0); Mean Corpuscular Hemoglobin 29.2 pg (28.0-32.0); Mean Corpuscular Hgb Conc. 33.6 g/dL (32.0-36.0); Monocytes # (auto) 0.7 10 ^3/uL (0-1.3); Monocytes % (auto) 7.8 % (0.0-12.0); Neutrophils # (auto) 6.5 10 ^3/uL (1.6-8.6); Neutrophils % (auto) 70.9 % (37.0-80.0); Nucleated Red Blood Cells % 0.1 %; Platelet Count (auto) 222 10^3/uL (140-450); Red Blood Cells 4.91 10^6/uL (4.0-5.20); Red Cell Distribution Width 12.2 % (11.8-14.3); White Blood Cell 9.2 10^3/uL (4.4-10.8)
[2024-06-10 09:31] LABS: BUN/Creatinine Ratio 12.9 (10.0-20.0); Blood Urea Nitrogen 11 mg/dL (9-23)
[2024-06-10] MEDS: ONDANSETRON HCL 4 MG/2 ML VIAL IV PRN (09:44)
[2024-06-10 09:45] VITALS: BP 124/76; PULSE 77; RESP 15; TEMP 98.6; O2SAT 95
[2024-06-10 09:50] LABS: Chloride 108 mmol/L (98-107); Glucose 199 mg/dL (74-106)
--- NOTE | 2024-06-10 10:56 | DVHCONRES ---
Date Seen: Jun 10, 2024 Resident Creating Document: LIYA JACOB RESIDENT History of Present Illness 28-year-old female with a past medical history of diabetes mellitus presents for evaluation of abdominal pain. Patient reports a one day history of lower pain with associated nausea and vomiting. Denies fever or chills. No dysuria or hematuria. She also reports her blood sugar being greater than 300 throughout the day. Other acute complaints reported. Patient seen and examined in ER holding area. Sitting comfortably, right upper quadrant pain has resolved. Tolerating clear liquid diet. Family History: Diabetes mellitus G8 MOTHER G8 FATHER Glaucoma G8 MOTHER Hypertension G8 FATHER Malignant neoplasm of ovary G8 MOTHER Allergies: Coded Allergies: NO KNOWN ALLERGIES (Unverified , 06/09/24) Home Meds Reported Medications Lisinopril (Lisinopril) 10 Mg Tab, 10 MG PO DAILY, TAB 06/10/24 Metformin Hydrochloride (Metformin Hcl) 500 Mg Tab, 500 MG PO BIDAC for 30 Days, MG 06/10/24 Semaglutide (Ozempic) 2 Mg/3 Ml Inj, 2 MG SC WEEKLY, INJ 06/10/24 Discontinued Reported Medications Metformin Hydrochloride (Metformin Hcl) 500 Mg Tab, 1000 MG PO BIDAC for 30 Days, MG 06/10/24 Current Medications Current Medications Medications (Trade) Dose Ordered Sig/Sena Route PRN Reason Start Time Stop Time Status Last Admin Diagnostic Test (Pha) (Accu-Chek Comfort Curve T) 1 strip Q6HR 06/10/24 06:00 06/10/24 05:53 Insulin Human Regular (InsuLIN R) Q6HR SC 06/10/24 06:00 06/10/24 05:57 Dextrose 50 ml UD PRN IV Blood Sugar LESS THAN 60 06/10/24 04:15 Acetaminophen/ Hydrocodone Bitart (Immaculata 5/325MG Tab) 1 tab Q4HP PRN PO MODERATE PAIN (4-6 PAIN SCALE) 06/10/24 04:15 06/10/24 10:56 DC Ondansetron HCl (Zofran) 4 mg Q4HP PRN IV NAUSEA / VOMITING 06/10/24 04:15 06/10/24 09:44 Acetaminophen (Tylenol Tablet) 650 mg Q6HP PRN PO PAIN SCALE 1-3 OR TEMP>100.4 06/10/24 04:15 Vital Signs Vital Signs Date Time Temp Pulse Resp B/P (MAP) Pulse Ox O2 Delivery O2 Flow Rate FiO2 06/10/24 09:45 98.6 77 15 124/76 (92) 95 98.6 06/10/24 08:59 Room Air* 0 21 Physical Exam Patient lying in bed, in no acute distress General: Well-built, afebrile, palor, mucosae are moist Cardiovascular: Regular S1 and S2. No murmurs, gallops or rubs. No JVD elevation. No pedal edema Respiratory: Normal B/L air entry on room air. Clear lung sounds on auscultation Abdomen: Soft, nontender, nondistended, normoactive bowel sounds, no rebound tenderness, no organomegaly, no masses Genitourinary: Deferred MSK/skin: Mobilizes 4 limbs. Skin is dry and warm Neurological: No motor, no sensitive deficits, normal speech. Pupils are isocoric and reactive. Psych/Mental Status: A/Ox3 Labs/Diagnostic Data Labs Test 06/10/24 09:02 06/10/24 05:56 06/09/24 23:30 06/09/24 23:11 Range/Units White Blood Count 9.2 4.4-10.8 10^3/uL Red Blood Count 4.91 4.0-5.20 10^6/uL Hemoglobin 14.3 12.2-16.2 g/dL Hematocrit 42.7 36.0-46.0 % Mean Corpuscular Volume 87.0 80.0-100.0 fL Mean Corpuscular Hemoglobin 29.2 28.0-32.0 pg Mean Corpuscular Hemoglobin Concent 33.6 32.0-36.0 g/dL Red Cell Distribution Width 12.2 11.8-14.3 % Platelet Count 222 140-450 10^3/uL Mean Platelet Volume 10.3 6.9-10.8 fL Neutrophils (%) (Auto) 70.9 37.0-80.0 % Lymphocytes (%) (Auto) 20.4 10.0-50.0 % Monocytes (%) (Auto) 7.8 0.0-12.0 % Eosinophils (%) (Auto) 0.4 0.0-7.0 % Basophils (%) (Auto) 0.5 0.0-2.0 % Neutrophils # (Auto) 6.5 1.6-8.6 10 ^3/uL Lymphocytes # (Auto) 1.9 0.4-5.4 10 ^3/uL Monocytes # (Auto) 0.7 0-1.3 10 ^3/uL Eosinophils # (Auto) 0 0-0.8 10 ^3/uL Basophils # (Auto) 0 0-0.2 10 ^3/uL Nucleated Red Blood Cells 0.1 % Sodium Level 142 136-145 mmol/L Potassium Level 3.6 3.5-5.1 mmol/L Chloride Level 108 H 98-107 mmol/L Carbon Dioxide Level 26 20-31 mmol/L Anion Gap 8 5-15 Blood Urea Nitrogen 11 9-23 mg/dL Creatinine 0.85 0.550-1.02 mg/dL Glomerular Filtration Rate Calc 95 >90 mL/min BUN/Creatinine Ratio 12.9 10.0-20.0 Serum Glucose 199 H 74-106 mg/dL Hemoglobin A1c 9.1 H <5.7 % A1C Calcium Level 9.3 8.7-10.4 mg/dL POC Glucose 203 H 70-106 mg/dl Lactic Acid Level 1.4 0.4-2.0 mmol/L Total Bilirubin 1.0 0.2-1.0 mg/dL Aspartate Amino Transferase (AST) 32 13-40 U/L Alanine Aminotransferase (ALT) 58 H 7-40 U/L Alkaline Phosphatase 92 46-116 U/L Total Protein 7.8 5.7-8.2 g/dL Albumin 4.8 3.2-4.8 g/dL Lipase 34 12-53 U/L Blood Gas Specimen Type Arterial Blood Gas Sample Site Right radial Blood Gas Patient Temperature 37.0 Arterial Blood Date Drawn [id number] Arterial Blood pH 7.484 H 7.350-7.450 Arterial Blood Partial Pressure CO2 33.5 32.0-45.0 mmHg Arterial Blood Partial Pressure O2 87.1 83.0-108.0 mmHg Arterial Blood HCO3 24.6 21.0-28.0 mmol/L Arterial Blood Oxygen Saturation 96.7 94.0-98.0 % Arterial Blood Base Excess 1.8 -2.0-3.0 mmol/L Arterial Blood Oxyhemoglobin 95.0 94.0-98.0 % Arterial Blood Carboxyhemoglobin 1.3 0.5-1.5 % Arterial Blood Methemoglobin 0.5 0.0-1.5 % Bartolome Test Yes Blood Gas Total Hemoglobin 15.70 12.0-16.0 g/dL Blood Gas Liter Flow 0.00 Blood Gas Modality Room air Blood Gas Spontaneous Rate 20 FiO2 % 21.0 Specimen Drawn By Marcelle almonte rt Assessment Acute abdominal pain secondary to viral versus forborne gastroenteritis Intractable nausea and vomiting secondary to above Increased ALT secondary to hepatic steatosis Less likely diabetic gastroparesis Uncontrolled DM Morbid obesity Plan: Given that the patient is tolerating liquid diet, negative CT scan and negative physical exam, advanced diet as tolerated. Elevated ALTs likely due to hepatic steatosis, patient is advised outpatient follow up with GI within 2-4 weeks to follow up on labs and further management. No acute intervention is needed. Okay to initiate discharge planning. Plan discussed with patient in which all questions have been answered Case discussed with Dr. Schmidt Plan discussed with: Patient LIYA JACOB RESIDENT Jun 10, 2024 10:56
[2024-06-10 12:21] VITALS: BP 136/74; PULSE 79; RESP 18; TEMP 98.4; O2SAT 96
--- NOTE | 2024-06-10 14:52 | DVHDSRES ---
Discharge Summary Date of Admission Resident Creating Document: LIAS BUENO RESIDENT Jun 10, 2024 at 04:12 Date of Discharge: Jun 10, 2024 Admitting Diagnosis Acute abdominal pain ?Diabetic gastroparesis Uncontrolled diabetes mellitus Morbid obesity Wounds: none Labs/Diagnostic Data: Laboratory Results Test 06/10/24 11:41 06/10/24 09:02 06/09/24 23:30 06/09/24 23:11 POC Glucose 157 mg/dl (70-106) White Blood Count 9.2 10^3/uL (4.4-10.8) Red Blood Count 4.91 10^6/uL (4.0-5.20) Hemoglobin 14.3 g/dL (12.2-16.2) Hematocrit 42.7 % (36.0-46.0) Mean Corpuscular Volume 87.0 fL (80.0-100.0) Mean Corpuscular Hemoglobin 29.2 pg (28.0-32.0) Mean Corpuscular Hemoglobin Concent 33.6 g/dL (32.0-36.0) Red Cell Distribution Width 12.2 % (11.8-14.3) Platelet Count 222 10^3/uL (140-450) Mean Platelet Volume 10.3 fL (6.9-10.8) Neutrophils (%) (Auto) 70.9 % (37.0-80.0) Lymphocytes (%) (Auto) 20.4 % (10.0-50.0) Monocytes (%) (Auto) 7.8 % (0.0-12.0) Eosinophils (%) (Auto) 0.4 % (0.0-7.0) Basophils (%) (Auto) 0.5 % (0.0-2.0) Neutrophils # (Auto) 6.5 10 ^3/uL (1.6-8.6) Lymphocytes # (Auto) 1.9 10 ^3/uL (0.4-5.4) Monocytes # (Auto) 0.7 10 ^3/uL (0-1.3) Eosinophils # (Auto) 0 10 ^3/uL (0-0.8) Basophils # (Auto) 0 10 ^3/uL (0-0.2) Nucleated Red Blood Cells 0.1 % Sodium Level 142 mmol/L (136-145) Potassium Level 3.6 mmol/L (3.5-5.1) Chloride Level 108 mmol/L (98-107) Carbon Dioxide Level 26 mmol/L (20-31) Anion Gap 8 (5-15) Blood Urea Nitrogen 11 mg/dL (9-23) Creatinine 0.85 mg/dL (0.550-1.02) Glomerular Filtration Rate Calc 95 mL/min (>90) BUN/Creatinine Ratio 12.9 (10.0-20.0) Serum Glucose 199 mg/dL (74-106) Hemoglobin A1c 9.1 % A1C (<5.7) Calcium Level 9.3 mg/dL (8.7-10.4) Lactic Acid Level 1.4 mmol/L (0.4-2.0) Total Bilirubin 1.0 mg/dL (0.2-1.0) Aspartate Amino Transferase (AST) 32 U/L (13-40) Alanine Aminotransferase (ALT) 58 U/L (7-40) Alkaline Phosphatase 92 U/L (46-116) Total Protein 7.8 g/dL (5.7-8.2) Albumin 4.8 g/dL (3.2-4.8) Lipase 34 U/L (12-53) Blood Gas Specimen Type Arterial Blood Gas Sample Site Right radial Blood Gas Patient Temperature 37.0 Arterial Blood Date Drawn Arterial Blood pH 7.484 (7.350-7.450) Arterial Blood Partial Pressure CO2 33.5 mmHg (32.0-45.0) Arterial Blood Partial Pressure O2 87.1 mmHg (83.0-108.0) Arterial Blood HCO3 24.6 mmol/L (21.0-28.0) Arterial Blood Oxygen Saturation 96.7 % (94.0-98.0) Arterial Blood Base Excess 1.8 mmol/L (-2.0-3.0) Arterial Blood Oxyhemoglobin 95.0 % (94.0-98.0) Arterial Blood Carboxyhemoglobin 1.3 % (0.5-1.5) Arterial Blood Methemoglobin 0.5 % (0.0-1.5) Bartolome Test Yes Blood Gas Total Hemoglobin 15.70 g/dL (12.0-16.0) Blood Gas Liter Flow 0.00 Blood Gas Modality Room air Blood Gas Spontaneous Rate 20 FiO2 % 21.0 Specimen Drawn By L almonte rt Other Laboratory Tests 06/10/24 09:02 Brief Hx & Hospital Course: HPI Patient is a 28-year-old female with a past medical history of type 2 diabetes mellitus, hypertension came to the ED with a chief complaint of abdominal pain and intractable nausea and vomiting for about 12 hours prior to admission. Patient reported that Monday evening she had food from a restaurant with a friend and a few hours after that both of the started feeling nauseous and she started to have multiple episodes of vomiting which initially consisted of undigested food particles and later watery liquid and eventually she had dry heaving. Patient was not able to keep anything down following which she came to the hospital for further evaluation. Patient had associated diffuse abdominal pain, no severe pain in the epigastrium and no radiation. Patient denied fever, chills, constipation or diarrhea. Past medical history: Type 2 diabetes mellitus, hypertension Past surgical history: None Social history: Patient lives with family and denies smoking, alcohol, drug use Home medications: Metformin 1000 mg b.i.d. , Ozempic weekly, lisinopril 10 mg q.d. Hospital course Patient was admitted to the hospital for intractable nausea and vomiting and associated abdominal pain. Initial fluid resuscitation was done with 2 L IV fluids. On physical exam patient had soft abdomen with no no tenderness in the right upper quadrant of the epigastrium. Patient underwent CT abdomen pelvis without contrast which was unremarkable. While in the hospital patient did not report of any episode of vomiting. Patient was started on clear liquid diet which she tolerated well in the afternoon. GI were consulted for acute abdominal pain and intractable and after discussing with the patient they recommended discharging the patient with outpatient GI follow up in 2-4 weeks. Patient was found to have elevated blood glucose levels on admission and her HbA1c was 9.1%. Patient was advised strict medical compliance and dietary and lifestyle modifications. Patient was discharged in stable condition to home. Discharge plan Follow up with the PCP in 1 week for further management of uncontrolled type 2 diabetes mellitus Medications: Advised to continue on home medications but avoid Ozempic for 1 week Diet: Patient was advised to continue with full liquid diet for 3-4 days and advance as tolerated. Consults/Reason for consult GI consultation for abdominal pain Operations or Procedures CT abdomen pelvis without contrast FINDINGS: LOWER THORAX: Imaged lung bases are grossly clear. ABDOMEN AND PELVIS: Evaluation of visceral and vascular structures is limited due to lack of contrast administration. As visualized, the liver demonstrates decreased parenchymal attenuation. This is most commonly seen with fatty infiltration. The spleen, pancreas and adrenals appear grossly unremarkable. No sizable, radiopaque cholelithiasis or biliary ductal dilatation appreciated. No hydroureteronephrosis or sizable, obstructing urinary tract calculi identified. No evidence of abdominal aortic aneurysm. Fluid content noted within the stomach. No evidence of bowel obstruction. Normal caliber appendix. No free intraperitoneal air or fluid identified. No sizable bladder calculus. No destructive osseous lesions identified. Degenerative changes at L5-S1. IMPRESSION: Decreased hepatic parenchymal attenuation which is most commonly secondary to fatty infiltration. Other diffusely infiltrative processes not excluded. Please correlate clinically. Otherwise no bowel obstruction, free intraperitoneal air / fluid or sizable inflammatory collections identified on this noncontrast examination. Condition at Discharge: Good Final Diagnosis/Problems List Acute abdominal pain Intractable nausea and vomiting likely d/t acute gastroenteritis Acute infectious gastroenteritis Hypertensive heart disease Uncontrolled diabetes mellitus Morbid obesity Discharge Disposition: Home Discharge Instruct/Medications Diet: Consistent carbohydrate Diet comment: continue on full liquid diet for 4-5 days and advance diet as tolerated Activity: No Restrictions, As Tolerated Follow Up/Referral: Follow up with the PCP in one week Medications: continue home medications Hold ozempic for one week Discharge Statement: "Patient was advised to return to the ER or call 911 if any headaches, dizziness, shortness of breath, chest pain, abdominal pain, bleeding, fevers, or worsening of medical condition. Patient was counseled about treatment plan, medications, possible side effects, patientverbalized understanding. All questions were answered to the best of my ability. This discharge took greater then 30 minutes in planning, reviewing documentation, counseling the patient, and discussing with other team members." ASSESSMENT ASSESSMENT Assessment Acute abdominal pain Intractable nausea and vomiting likely d/t acute gastroenteritis Acute infectious gastroenteritis Hypertensive heart disease Uncontrolled diabetes mellitus Morbid obesity Date of Service: Jun 10, 2024 Billing Provider: MINAL HOLBROOK MD Common Visit Codes: 34443-JBA/OBS DISCH DAY >30min LISA BUENO RESIDENT Jun 10, 2024 14:52 MINAL HOLBROOK MD Jun 11, 2024 09:44
== END 2024-06-10 15:30 | disposition home or self-care (01) | DRG 249 ==
LOC: ER 21:56 → OVERFLOW 06-10 04:12
PROVIDERS: ADMIT Student in an Organized Health Care Education/Training Program; ATTEND Anesthesiology
DX: A09 Infectious gastroenteritis and colitis, unspecified (principal); E11.43 Type 2 diabetes mellitus with diabetic autonomic (poly)neuropathy; K31.84 Gastroparesis; I11.9 Hypertensive heart disease without heart failure; E11.65 Type 2 diabetes mellitus with hyperglycemia; E66.01 Morbid (severe) obesity due to excess calories; K76.0 Fatty (change of) liver, not elsewhere classified; Z68.42 Body mass index [BMI] 45.0-49.9, adult; Z82.49 Family history of ischemic heart disease and other diseases of the circulatory system; Z83.3 Family history of diabetes mellitus; Z80.41 Family history of malignant neoplasm of ovary
CPT/HCPCS: 36415; 36600; 74176; 80048; 80053; 82805; 82962; 83036; 83605; 83690; 85025; 99291; G0378; J1815; J2405